=== PATIENT | female | born 1985 | race Caucasian/White ===

== ENCOUNTER → 2017-07-15 | Outpatient (CLI) | payer OTHER ==
--- NOTE | 2017-07-15 14:42 | MR ---
MR left foot HISTORY: Left foot pain Multiplanar multisequence imaging through the left foot No comparisons There are changes of subcutaneous edema present at the lateral foot. Fluid signal present along the f lexor and extensor digitorum tendons could be due to tenosynovitis. Increased signal on T2-weighted s equences is noted within the lateral cuneiform. Plantar aponeurosis is intact. Achilles tendon is int act. No evident ligamentous disruption. No evident fracture or dislocation. Flexor tendons, extensor tendons, peroneal longus and brevis tendons are intact. IMPRESSION: Bone marrow edema involving the lateral cuneiform, correlate for possible posttraumatic m arrow edema. There could be associated microtrabecular fracture. There may be tenosynovitis especiall y along the extensor digitorum tendon. Soft tissue swelling.
== END | disposition home or self-care (01) ==
LOC: RADMRIMAIN 09:11
PROVIDERS: ATTEND Family Medicine
DX: R60.9 Edema, unspecified (principal); M79.89 Other specified soft tissue disorders; S96.912A Strain of unspecified muscle and tendon at ankle and foot level, left foot, initial encounter

== ENCOUNTER → 2017-08-04 | Outpatient (CLI) | payer OTHER ==
[2017-08-04 16:07] LABS: Basophils # (A) 0.1 k/uL (0-0.2); Basophils % (A) 1 %; CH 31.4; CHCM 32.5; Eosinophils # (A) 0.5 k/uL (0-0.7); Eosinophils % (A) 5 %; HCT 40.3 % (34.0-46.0); HDW 2.16; HGB 13.2 gm/dL (11.4-16.0); Luc # (Auto) 0.19; Luc % (Auto) 2; Lymphocytes % (A) 30 %; MCH 31.7 pg (25.0-35.0); MCHC 32.7 g/dL (31.0-37.0); Mean Platelet Volume 7.4; Monocytes # (A) 0.5 k/uL (0-1.0); Monocytes % (A) 5 %; Neutrophils # (A) 5.6 k/uL (1.3-7.7); Neutrophils % (A) 56 %; RBC 4.15 m/uL (3.80-5.40); RDW 12.6 % (11.5-15.5); WBC (Perox) 10.74
== END | disposition home or self-care (01) ==
LOC: LABPAT 15:25
PROVIDERS: ATTEND Obstetrics & Gynecology
DX: Z01.812 Encounter for preprocedural laboratory examination (principal)
CPT/HCPCS: 36415; 85025

== ENCOUNTER 2017-08-11 09:44 | Day surgery (SDC) | payer OTHER ==
[2017-08-05 12:14] VITALS: BMI 46.0
--- NOTE | 2017-08-10 17:41 | P.HPOB ---
History of Present Illness H&P Date: 08/10/17 Chief Complaint: Family planning 32-year-old presents for laparoscopic tubal ligation and removal of Nexplanon. Review of Systems All systems: negative Constitutional: Denies chills, Denies fever Eyes: denies blurred vision, denies pain Ears, nose, mouth and throat: Denies headache, Denies sore throat Cardiovascular: Denies chest pain, Denies shortness of breath Respiratory: Denies cough Gastrointestinal: Denies abdominal pain, Denies diarrhea, Denies nausea, Denies vomiting Genitourinary: Denies dysuria, Denies hematuria Musculoskeletal: Denies myalgias Integumentary: Denies pruritus, Denies rash Neurological: Denies numbness, Denies weakness Psychiatric: Denies anxiety, Denies depression Endocrine: Denies fatigue, Denies weight change Past Medical History Additional Past Medical History / Comment(s): SEASONAL ALLERGIES History of Any Multi-Drug Resistant Organisms: None Reported Additional Past Surgical History / Comment(s): D & C Past Anesthesia/Blood Transfusion Reactions: No Reported Reaction Past Psychological History: No Psychological Hx Reported Smoking Status: Current every day smoker Past Alcohol Use History: None Reported Past Drug Use History: Marijuana - Past Family History Mother Family Medical History: No Reported History Medications and Allergies Home Medications Medication Instructions Recorded Confirmed Type Loratadine [Claritin] 10 mg PO DAILY 08/05/17 08/05/17 History Meloxicam [Mobic] 7.5 mg PO DAILY 08/05/17 08/05/17 History Allergies Allergy/AdvReac Type Severity Reaction Status Date / Time No Known Allergies Allergy Verified 08/05/17 12:08 Exam Osteopathic Statement: *. No significant issues noted on an osteopathic structural exam other than those noted in the History and Physical/Consult. Heart: Regular rate and rhythm Lungs: Clear to auscultation bilaterally Abdomen: Soft, nontender Extremities: Negative Homans sign Assessment and Plan (1) Family planning Status: Acute Plan: 1. Laparoscopic tubal ligation and removal of Nexplanon
[~2017-08-11 09:44] MED LIST: LACTATED RINGERS 1,000 ML IV SCH; ONDANSETRON 4 MG/2 ML VIAL IVP PRN; Pre Op ABX Message 1 EACH MISC MISCELLANE ONE
[2017-08-11 10:09] VITALS: TEMP 98
[2017-08-11] MEDS ORDERED: LIDOCAINE 1% 20 ML VIAL (10MG/ML) FOR IV START INTRADERMA ONE (10:13)
[2017-08-11] MEDS ORDERED: SUCCINYLCHOLINE CHLORIDE 100 MG/5 ML SYR IV ONE (11:04)
[2017-08-11] MEDS ORDERED: fentaNYL (PF) 50 MCG/ML 2 ML AMP ONE (11:04)
[2017-08-11] MEDS ORDERED: KETOROLAC 30 MG/ML 1 ML VIAL ONE (11:04)
[2017-08-11] MEDS ORDERED: PROPOFOL 10 MG/ML 20 ML VIAL IV ONE (11:04)
[2017-08-11] MEDS ORDERED: GLYCOPYRROLATE 0.2 MG/ML 2 ML VIAL ONE (11:04)
[2017-08-11] MEDS ORDERED: LIDOCAINE 1% INJ 10MG/ML (20 ML MDV) ONE (11:04)
[2017-08-11] MEDS ORDERED: MIDAZOLAM 2 MG/2 ML VIAL ONE (11:04)
[2017-08-11] MEDS ORDERED: ROCURONIUM BROMIDE 10 MG/ML 10 ML VIAL IV ONE (11:04)
[2017-08-11] MEDS ORDERED: NEOSTIGMINE 1 MG/ML 10 ML VIAL ONE (11:04)
[2017-08-11] MEDS ORDERED: BUPIVACAINE (PF) 0.25% 30 ML VIAL SQ ONE ×3 (11:36)
--- NOTE | 2017-08-11 12:19 | P.OP ---
Date of Procedure: 08/11/17 Preoperative Diagnosis: 1. family planning 2. retained nexplanon Postoperative Diagnosis: 1. family planning 2. retained nexplanon Procedure(s) Performed: laparoscopic tubal ligation and removal of nexplanon with assistance of fluoroscopy Anesthesia: TATE Surgeon: Theresa Soto Estimated Blood Loss (ml): 15 IV fluids (ml): 700 Urine output (ml): 100 Pathology: none sent Condition: stable Disposition: PACU Operative Findings: normal uterus tubes and ovaries, Nexplanon found in left arm Description of Procedure: Patient was taken to the operating room where general anesthesia was obtained without difficulty. She was prepped and draped in normal sterile fashion in the dorsal lithotomy position, legs placed in the Enmanuel stirrups. Bladder drained of all urine. Bejou speculum placed in the vagina and the anterior lip the cervix was grasped with single-tooth tenaculum. The uterus is sounded to 8 cm and the kroner manipulator was placed. Attention was then turned to the abdomen and gloves were changed. A 10 mm infraumbilical incision was made the scalpel and 10 mm optical trocar was placed under direct visualization. A 5 mm suprapubic Incision was made and a 5 mm optical trocar was placed under direct visualization. Survey of the pelvis revealed normal uterus tubes and ovaries. The left fallopian tube was grasped with a Kleppinger and fulgurated 2 -3 cm on this side in the ampullar portion. The right fallopian tube was grasped with a Kleppinger and fulgurated 2-3 cm in the ampullar portion. All instruments were then removed from the abdomen and vagina. The 10 mm infraumbilical incision was closed with 0 Vicryl and the fascial layer and then 4-0 Vicryl in a subcuticular fashion. The 5 mm incision was closed with 4-0 Vicryl in a subcuticular fashion. the left upper arm was prepped and draped. The C-arm was brought into the room and x-ray was taken. A 2 mm incision was made over the area where the Was seen. A hemostat was used to carefully dissected fat tissue down to where the level of the nexplanon Was noted. The Nexplanon Was grasped and removed. Hemostasis was assured and Band-Aid was placed. Patient tolerated procedure well , sponge and instrument counts correct 2 and she was taken to recovery room in stable condition.
[2017-08-11] MEDS: HYDROmorphone 0.5 MG/0.5 ML SYRINGE IVP PRN ×4 (12:29→13:00)
--- NOTE | 2017-08-11 12:32 | FL ---
Fluoroscopy History: FOREIGN BODY REMOVAL 2 MIN 51 SEC FL, 1 FILM SCANNED
[2017-08-11 13:58] VITALS: RESP 18
[2017-08-11] MEDS ORDERED: Acetaminophen-Codeine 300-30mg TAB PO ONE (14:35)
[2017-08-11 15:06] VITALS: BP 122/65; PULSE 91
== END 2017-08-11 15:28 | disposition home or self-care (01) ==
LOC: OR 09:44
PROVIDERS: ATTEND Obstetrics & Gynecology
DX: Z30.2 Encounter for sterilization (principal); Z30.46 Encounter for surveillance of implantable subdermal contraceptive; F17.200 Nicotine dependence, unspecified, uncomplicated; Z79.1 Long term (current) use of non-steroidal anti-inflammatories (NSAID); Z79.899 Other long term (current) drug therapy
CPT/HCPCS: 58670; 11982; 81025; J2250; J2710; J2405; J2001; J3010; J1885; J0330; J2704; J1170

== ENCOUNTER → 2018-07-20 | Outpatient (CLI) | payer OTHER ==
--- NOTE | 2018-07-20 11:30 | XR ---
EXAMINATION TYPE: PA chest and left rib series, 5 views DATE OF EXAM: 07/20/2018 Comparison: Chest 04/11/2009 Clinical History: 33-year-old female M54.6 T spine pain, R07.81 rib pain on left side Findings: The cardiomediastinal silhouette, aorta, and pulmonary vasculature are within normal limits. Lungs and pleural spaces are clear. No displaced left rib fracture. Impression: No acute cardiopulmonary process. No displaced left rib fracture seen.
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
== END | disposition home or self-care (01) ==
LOC: RADXRMAIN 10:32
PROVIDERS: ATTEND Family Medicine
DX: M51.34 Other intervertebral disc degeneration, thoracic region (principal); R07.81 Pleurodynia
CPT/HCPCS: 72072

== ENCOUNTER → 2019-07-22 | Outpatient (CLI) | payer OTHER ==
--- NOTE | 2019-07-25 09:23 | MM ---
Reason for exam: screening (asymptomatic). Physical Findings: Nurse did not find any significant physical abnormalities on exam. MG Screening Mammo w CAD Bilateral CC and MLO view(s) were taken. No prior studies available for comparison. There are scattered fibroglandular densities. Focal asymmetry left medial CC and right MLO inferiorly. These results were verbally communicated with the patient and result sheet given to the patient on 07/22/19. ASSESSMENT: Incomplete: need additional imaging evaluation, BI-RAD 0 RECOMMENDATION: Special view mammogram of both breasts.
--- NOTE | 2019-07-25 09:25 | MM ---
Reason for exam: additional evaluation requested from abnormal screening. Physical Findings: Nurse did not find any significant physical abnormalities on exam. MG Work Up Mamm w CAD BILAT Spot compression MLO view(s) were taken of the right breast. Spot compression CC view(s) were taken of the left breast. There are scattered fibroglandular densities. Finding: There is a typically benign equal density (isodense), lobulated mass in the lower quadrant MLO view of the right breast. Distortion decreased on compression left CC view. These results were verbally communicated with the patient and result sheet given to the patient on 07/22/19. ASSESSMENT: Probably benign, BI-RAD 3 RECOMMENDATION: Follow-up diagnostic mammogram of both breasts in 6 months.
== END | disposition home or self-care (01) ==
LOC: RADMAMWWP 14:20
PROVIDERS: ATTEND Obstetrics & Gynecology
DX: Z12.31 Encounter for screening mammogram for malignant neoplasm of breast (principal); R92.8 Other abnormal and inconclusive findings on diagnostic imaging of breast
CPT/HCPCS: 77066; 77067